=== PATIENT | female | born 1930 | race Two or more races ===

== ENCOUNTER 2019-05-30 11:46 | Inpatient (IN) | payer OTHER ==
[~2019-05-30] VITALS: Ht 157.5 cm; Wt 65.8 kg
[2019-06-07] MEDS ORDERED: PRAVASTATIN SOD20 MG PO (13:06)
[2019-06-07] MEDS ORDERED: AMLODIPINE BESYL5 MG PO (13:07)
[2019-06-07] MEDS ORDERED: SYNTHROID112 MCG PO (13:07)
[2019-06-07] MEDS ORDERED: ATACAND16 MG PO (13:08)
[2019-06-07] MEDS ORDERED: MICROZIDE12.5 MG PO (13:08)
[2019-06-07] MEDS ORDERED: TRAVATAN Z5 ML OP (13:08)
== END 2019-06-17 12:09 | disposition home or self-care (01) | DRG 330 ==
LOC: SURH 06-14 05:19 → O/R 06-14 05:19 → SURG 06-14 07:00 → SURH 06-14 11:36 → SURG 06-15 10:15 → SURH 06-17 12:09
PROVIDERS: ADMIT Colon & Rectal Surgery
PROC: 0DBN0ZZ Excision of Sigmoid Colon, Open Approach (ICD-10-PCS; 2019-06-14)
PROC: 07BC0ZX Excision of Pelvis Lymphatic, Open Approach, Diagnostic (ICD-10-PCS; 2019-06-14)
PROC: 0DNW0ZZ Release Peritoneum, Open Approach (ICD-10-PCS; 2019-06-14)
PROC: 4A19X1Z Monitoring of Respiratory Capacity, External Approach (ICD-10-PCS; 2019-06-14)
PROC: 0DBP0ZZ Excision of Rectum, Open Approach (ICD-10-PCS; principal; 2019-06-14 07:00)
DX: D12.5 Benign neoplasm of sigmoid colon (principal); J98.11 Atelectasis; N73.6 Female pelvic peritoneal adhesions (postinfective)

== ENCOUNTER 2019-06-13 07:00 | Day surgery (SDC) | payer OTHER ==
[~2019-06-13 07:00] MED LIST: AMLODIPINE BESYL5 MG PO; ATACAND16 MG PO; MICROZIDE12.5 MG PO; PRAVASTATIN SOD20 MG PO; SYNTHROID112 MCG PO; TRAVATAN Z5 ML OP
== END 2019-06-13 13:00 | disposition home or self-care (01) ==
LOC: AMB-ENDOS 07:00
DX: C20 Malignant neoplasm of rectum (principal); Z85.048 Personal history of other malignant neoplasm of rectum, rectosigmoid junction, and anus